=== PATIENT | male | born 1955 | race Two or more races ===

== ENCOUNTER 2016-10-14 11:25 | Inpatient (IN) | payer OTHER ==
[2016-10-14 12:53] VITALS: BMI 26.6
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
[2016-10-14] MEDS ORDERED: MAGNESIUM CITRATE 300 ML BOTTLE PO PRN (15:01)
[2016-10-14] MEDS ORDERED: LOPERAMIDE HCL 2 MG CAPSULE PO PRN (15:01)
[2016-10-14] MEDS ORDERED: MAGNESIUM HYDROX 2400MG/30ML ORAL SUSPENSION 30 ML CUP PO PRN (15:01)
[2016-10-14] MEDS ORDERED: MENTHOL/PHENOL 1 EACH UD MM PRN (15:01)
[2016-10-14] MEDS ORDERED: ACETAMINOPHEN 325 MG TABLET (FP) PO PRN (15:01)
[2016-10-14] MEDS ORDERED: MAG HYDROX/AL HYDROX/SIMETH 30 ML UNIT-DOSE CUP PO PRN (15:01)
[2016-10-14] MEDS ORDERED: IBUPROFEN 400 MG TABLET (FP) PO PRN (15:01)
[2016-10-14] MEDS ORDERED: diphenhydrAMINE HCL 50 MG CAPSULE PO PRN (15:01)
[2016-10-14] MEDS ORDERED: P-EPHED 60MG/TRIPROLIDI 2.5MG TABLET PO PRN (15:01)
[2016-10-14] MEDS ORDERED: guaiFENesin/D-METHORPHAN HB 10 ML UNIT-DOSE CUPS PO PRN (15:01)
[2016-10-14] MEDS: THIAMINE HCL 100 MG TABLET (FP) PO SCH (21:44)
[2016-10-14] MEDS: RILPIVIRINE HCL 25 MG TABLET PO SCH (21:44)
[2016-10-14] MEDS: levETIRAcetam 500 MG TABLET (FP) PO SCH (21:44)
[2016-10-14 23:41] LABS: URINE APPEARANCE CLEAR; URINE BILIRUBIN NEGATIVE (NEGATIVE); URINE BLOOD NEGATIVE (NEGATIVE); URINE COLOR DKYELLOW; URINE GLUCOSE (UA) NEGATIVE (NEGATIVE); URINE KETONE NEGATIVE (NEGATIVE); URINE LEUK ESTERASE NEGATIVE (NEGATIVE); URINE NITRITE NEGATIVE (NEGATIVE); URINE PROTEIN NEGATIVE (NEGATIVE); URINE UROBILINOGEN NEGATIVE E.U./dl (0.2-1.0)
[2016-10-15 09:45] LABS: MCHC 33.1 g/dl (32.0-35.9); MEAN CELL VOLUME 96.9 fl (80-96); MEAN PLT VOLUME 9.3 fl (7.5-11.1); PLATELET COUNT 162 K/MM3 (134-434); WHITE BLOOD COUNT 6.4 K/mm3 (4.0-10.0)
[2016-10-15] MEDS: SULFAMETHOXAZOLE/TRIMETHOPRIM 800MG/160MG D.S. TABLET PO SCH (10:25)
[2016-10-15] MEDS: PRENATAL VITAMINS W/ FOLIC ACID TABLET (FP) PO SCH (10:25)
[2016-10-15] MEDS: levETIRAcetam 500 MG TABLET (FP) PO SCH ×2 (10:25→21:25)
[2016-10-15] MEDS: RILPIVIRINE HCL 25 MG TABLET PO SCH ×2 (10:26→21:23)
[2016-10-15] MEDS: NICOTINE 21 MG/24 HOURS TOPICAL PATCH TD SCH (10:27)
[2016-10-15 10:39] LABS: ALBUMIN 3.5 g/dl (3.4-5.0); ALK PHOS 86 U/L (45-117); ANION GAP 12 (8-16); BILIRUBIN,TOTAL 0.3 mg/dL (0.2-1.0); CALCIUM 8.9 mg/dL (8.5-10.1); CO2 24 mmol/L (21-32); CREATININE 1.2 mg/dL (0.7-1.3); GLUCOSE,RANDOM 131 mg/dL (74-106); SGOT/AST 31 U/L (15-37); SGPT/ALT 46 U/L (12-78); TOT PROT 7.5 g/dl (6.4-8.2)
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
[2016-10-15] MEDS: THIAMINE HCL 100 MG TABLET (FP) PO SCH (21:25)
--- NOTE | 2016-10-15 22:30 | PN ---
ALEX Progress Note Note: received nurse informed patient reports taking antivirus medication once a day at home x "years" home medications reviewed that genvoya +endurant po once daily
--- NOTE | 2016-10-15 23:38 | EKG ---
Test Reason : Blood Pressure : / mmHG Vent. Rate : 067 BPM Atrial Rate : 067 BPM P-R Int : 190 ms QRS Dur : 086 ms QT Int : 378 ms P-R-T Axes : 049 005 027 degrees QTc Int : 399 ms NORMAL SINUS RHYTHM NORMAL ECG NO PREVIOUS ECGS AVAILABLE Confirmed by MALATHI MARTINEZ MD ([id number]) on 10/15/2016 11:38:10 PM Referred By: Confirmed By:MALATHI MARTINEZ MD
[2016-10-16] MEDS: levETIRAcetam 500 MG TABLET (FP) PO SCH ×2 (10:46→21:17)
[2016-10-16] MEDS: NICOTINE 21 MG/24 HOURS TOPICAL PATCH TD SCH (10:46)
[2016-10-16] MEDS: ARIPiprazole 15 MG TABLET PO SCH (10:46)
[2016-10-16] MEDS: SERTRALINE HCL 50 MG TABLET (FP) PO SCH (10:46)
[2016-10-16] MEDS: SULFAMETHOXAZOLE/TRIMETHOPRIM 800MG/160MG D.S. TABLET PO SCH (10:46)
[2016-10-16] MEDS: RILPIVIRINE HCL 25 MG TABLET PO SCH (10:46)
[2016-10-16] MEDS: PRENATAL VITAMINS W/ FOLIC ACID TABLET (FP) PO SCH (10:46)
[2016-10-16] MEDS: THIAMINE HCL 100 MG TABLET (FP) PO SCH (21:17)
[2016-10-17] MEDS: ARIPiprazole 15 MG TABLET PO SCH (10:46)
[2016-10-17] MEDS: RILPIVIRINE HCL 25 MG TABLET PO SCH (10:46)
[2016-10-17] MEDS: levETIRAcetam 500 MG TABLET (FP) PO SCH ×2 (10:46→21:17)
[2016-10-17] MEDS: SULFAMETHOXAZOLE/TRIMETHOPRIM 800MG/160MG D.S. TABLET PO SCH (10:46)
[2016-10-17] MEDS: NICOTINE 21 MG/24 HOURS TOPICAL PATCH TD SCH (10:46)
[2016-10-17] MEDS: PRENATAL VITAMINS W/ FOLIC ACID TABLET (FP) PO SCH (10:46)
[2016-10-17] MEDS: SERTRALINE HCL 50 MG TABLET (FP) PO SCH (10:46)
[2016-10-17] MEDS: THIAMINE HCL 100 MG TABLET (FP) PO SCH (21:17)
[2016-10-18] MEDS: SERTRALINE HCL 50 MG TABLET (FP) PO SCH (10:19)
[2016-10-18] MEDS: SULFAMETHOXAZOLE/TRIMETHOPRIM 800MG/160MG D.S. TABLET PO SCH (10:19)
[2016-10-18] MEDS: levETIRAcetam 500 MG TABLET (FP) PO SCH ×2 (10:19→21:36)
[2016-10-18] MEDS: PRENATAL VITAMINS W/ FOLIC ACID TABLET (FP) PO SCH (10:19)
[2016-10-18] MEDS: ARIPiprazole 15 MG TABLET PO SCH (10:19)
[2016-10-18] MEDS: RILPIVIRINE HCL 25 MG TABLET PO SCH (10:20)
[2016-10-18] MEDS: NICOTINE 21 MG/24 HOURS TOPICAL PATCH TD SCH (10:21)
[2016-10-18] MEDS: THIAMINE HCL 100 MG TABLET (FP) PO SCH (21:36)
[2016-10-19] MEDS: PRENATAL VITAMINS W/ FOLIC ACID TABLET (FP) PO SCH (10:41)
[2016-10-19] MEDS: NICOTINE 21 MG/24 HOURS TOPICAL PATCH TD SCH (10:41)
[2016-10-19] MEDS: SERTRALINE HCL 50 MG TABLET (FP) PO SCH (10:41)
[2016-10-19] MEDS: SULFAMETHOXAZOLE/TRIMETHOPRIM 800MG/160MG D.S. TABLET PO SCH (10:42)
[2016-10-19] MEDS: ARIPiprazole 15 MG TABLET PO SCH (10:42)
[2016-10-19] MEDS: levETIRAcetam 500 MG TABLET (FP) PO SCH ×2 (10:42→21:33)
[2016-10-19] MEDS: RILPIVIRINE HCL 25 MG TABLET PO SCH (10:42)
[2016-10-19] MEDS: THIAMINE HCL 100 MG TABLET (FP) PO SCH (21:34)
[2016-10-20] MEDS: SULFAMETHOXAZOLE/TRIMETHOPRIM 800MG/160MG D.S. TABLET PO SCH (10:27)
[2016-10-20] MEDS: levETIRAcetam 500 MG TABLET (FP) PO SCH ×2 (10:27→21:33)
[2016-10-20] MEDS: SERTRALINE HCL 50 MG TABLET (FP) PO SCH (10:27)
[2016-10-20] MEDS: PRENATAL VITAMINS W/ FOLIC ACID TABLET (FP) PO SCH (10:27)
[2016-10-20] MEDS: ARIPiprazole 15 MG TABLET PO SCH (10:27)
[2016-10-20] MEDS: RILPIVIRINE HCL 25 MG TABLET PO SCH (10:28)
[2016-10-20] MEDS: NICOTINE 21 MG/24 HOURS TOPICAL PATCH TD SCH (10:28)
[2016-10-20] MEDS: THIAMINE HCL 100 MG TABLET (FP) PO SCH (21:33)
[2016-10-21] MEDS: SERTRALINE HCL 50 MG TABLET (FP) PO SCH (09:52)
[2016-10-21] MEDS: PRENATAL VITAMINS W/ FOLIC ACID TABLET (FP) PO SCH (09:52)
[2016-10-21] MEDS: SULFAMETHOXAZOLE/TRIMETHOPRIM 800MG/160MG D.S. TABLET PO SCH (09:52)
[2016-10-21] MEDS: ARIPiprazole 15 MG TABLET PO SCH (09:58)
[2016-10-21] MEDS: levETIRAcetam 500 MG TABLET (FP) PO SCH ×2 (09:58→21:28)
[2016-10-21] MEDS: NICOTINE 21 MG/24 HOURS TOPICAL PATCH TD SCH (10:02)
[2016-10-21] MEDS: RILPIVIRINE HCL 25 MG TABLET PO SCH (10:02)
[2016-10-21] MEDS: THIAMINE HCL 100 MG TABLET (FP) PO SCH (21:28)
[2016-10-22] MEDS: ARIPiprazole 15 MG TABLET PO SCH (10:37)
[2016-10-22] MEDS: SULFAMETHOXAZOLE/TRIMETHOPRIM 800MG/160MG D.S. TABLET PO SCH (10:37)
[2016-10-22] MEDS: SERTRALINE HCL 50 MG TABLET (FP) PO SCH (10:37)
[2016-10-22] MEDS: levETIRAcetam 500 MG TABLET (FP) PO SCH ×2 (10:37→21:35)
[2016-10-22] MEDS: NICOTINE 21 MG/24 HOURS TOPICAL PATCH TD SCH (10:38)
[2016-10-22] MEDS: RILPIVIRINE HCL 25 MG TABLET PO SCH (10:38)
[2016-10-22] MEDS: PRENATAL VITAMINS W/ FOLIC ACID TABLET (FP) PO SCH (10:39)
[2016-10-22] MEDS: THIAMINE HCL 100 MG TABLET (FP) PO SCH (21:35)
[2016-10-23] MEDS: PRENATAL VITAMINS W/ FOLIC ACID TABLET (FP) PO SCH (09:47)
[2016-10-23] MEDS: ARIPiprazole 15 MG TABLET PO SCH (09:47)
[2016-10-23] MEDS: levETIRAcetam 500 MG TABLET (FP) PO SCH ×2 (09:47→21:16)
[2016-10-23] MEDS: SULFAMETHOXAZOLE/TRIMETHOPRIM 800MG/160MG D.S. TABLET PO SCH (09:47)
[2016-10-23] MEDS: SERTRALINE HCL 50 MG TABLET (FP) PO SCH (09:47)
[2016-10-23] MEDS: NICOTINE 21 MG/24 HOURS TOPICAL PATCH TD SCH (09:48)
[2016-10-23] MEDS: RILPIVIRINE HCL 25 MG TABLET PO SCH ×2 (10:40→21:16)
[2016-10-23] MEDS: THIAMINE HCL 100 MG TABLET (FP) PO SCH (21:16)
[2016-10-24] MEDS: RILPIVIRINE HCL 25 MG TABLET PO SCH ×2 (09:54→21:53)
[2016-10-24] MEDS: ARIPiprazole 15 MG TABLET PO SCH (09:54)
[2016-10-24] MEDS: PRENATAL VITAMINS W/ FOLIC ACID TABLET (FP) PO SCH (09:54)
[2016-10-24] MEDS: levETIRAcetam 500 MG TABLET (FP) PO SCH ×2 (09:54→21:53)
[2016-10-24] MEDS: SERTRALINE HCL 50 MG TABLET (FP) PO SCH (09:54)
[2016-10-24] MEDS: SULFAMETHOXAZOLE/TRIMETHOPRIM 800MG/160MG D.S. TABLET PO SCH (09:54)
[2016-10-24] MEDS: NICOTINE 21 MG/24 HOURS TOPICAL PATCH TD SCH (09:56)
[2016-10-24] MEDS: THIAMINE HCL 100 MG TABLET (FP) PO SCH (21:53)
[2016-10-25] MEDS: SULFAMETHOXAZOLE/TRIMETHOPRIM 800MG/160MG D.S. TABLET PO SCH (09:38)
[2016-10-25] MEDS: PRENATAL VITAMINS W/ FOLIC ACID TABLET (FP) PO SCH (09:38)
[2016-10-25] MEDS: levETIRAcetam 500 MG TABLET (FP) PO SCH ×2 (09:38→21:18)
[2016-10-25] MEDS: NICOTINE 21 MG/24 HOURS TOPICAL PATCH TD SCH (09:38)
[2016-10-25] MEDS: SERTRALINE HCL 50 MG TABLET (FP) PO SCH (09:38)
[2016-10-25] MEDS: RILPIVIRINE HCL 25 MG TABLET PO SCH ×2 (09:38→21:18)
[2016-10-25] MEDS: ARIPiprazole 15 MG TABLET PO SCH (09:38)
[2016-10-25] MEDS: THIAMINE HCL 100 MG TABLET (FP) PO SCH (21:18)
[2016-10-26] MEDS: PRENATAL VITAMINS W/ FOLIC ACID TABLET (FP) PO SCH (10:35)
[2016-10-26] MEDS: ARIPiprazole 15 MG TABLET PO SCH (10:35)
[2016-10-26] MEDS: SULFAMETHOXAZOLE/TRIMETHOPRIM 800MG/160MG D.S. TABLET PO SCH (10:35)
[2016-10-26] MEDS: levETIRAcetam 500 MG TABLET (FP) PO SCH ×2 (10:35→21:10)
[2016-10-26] MEDS: SERTRALINE HCL 50 MG TABLET (FP) PO SCH (10:35)
[2016-10-26] MEDS: RILPIVIRINE HCL 25 MG TABLET PO SCH ×2 (10:35→21:10)
[2016-10-26] MEDS: NICOTINE 21 MG/24 HOURS TOPICAL PATCH TD SCH (10:36)
[2016-10-26] MEDS: THIAMINE HCL 100 MG TABLET (FP) PO SCH (21:10)
[2016-10-27] MEDS: ARIPiprazole 15 MG TABLET PO SCH (10:43)
[2016-10-27] MEDS: SULFAMETHOXAZOLE/TRIMETHOPRIM 800MG/160MG D.S. TABLET PO SCH (10:43)
[2016-10-27] MEDS: RILPIVIRINE HCL 25 MG TABLET PO SCH ×2 (10:43→21:16)
[2016-10-27] MEDS: NICOTINE 21 MG/24 HOURS TOPICAL PATCH TD SCH (10:44)
[2016-10-27] MEDS: levETIRAcetam 500 MG TABLET (FP) PO SCH ×2 (10:44→21:16)
[2016-10-27] MEDS: PRENATAL VITAMINS W/ FOLIC ACID TABLET (FP) PO SCH (10:44)
[2016-10-27] MEDS: SERTRALINE HCL 50 MG TABLET (FP) PO SCH (10:44)
[2016-10-27] MEDS: THIAMINE HCL 100 MG TABLET (FP) PO SCH (21:16)
[2016-10-28 07:07] VITALS: BP 120/69; PULSE 63; TEMP 97.9
[2016-10-28] MEDS: SERTRALINE HCL 50 MG TABLET (FP) PO SCH (10:14)
[2016-10-28] MEDS: PRENATAL VITAMINS W/ FOLIC ACID TABLET (FP) PO SCH (10:14)
[2016-10-28] MEDS: ARIPiprazole 15 MG TABLET PO SCH (10:14)
[2016-10-28] MEDS: SULFAMETHOXAZOLE/TRIMETHOPRIM 800MG/160MG D.S. TABLET PO SCH (10:14)
[2016-10-28] MEDS: NICOTINE 21 MG/24 HOURS TOPICAL PATCH TD SCH (10:15)
[2016-10-28] MEDS: RILPIVIRINE HCL 25 MG TABLET PO SCH (10:15)
[2016-10-28] MEDS: levETIRAcetam 500 MG TABLET (FP) PO SCH (10:16)
--- NOTE | 2016-10-28 12:02 | PN ---
Psychiatric Progress Note Vital Signs: Vital Signs Period Temp Pulse Resp BP Sys/Ruiz Pulse Ox Last 24 Hr 97.9 F 63 18-18 120/69 Date of Session: 10/28/16 Chief Complaint:: discharge visit HPI: Patient has addressed cocaine , nicotine dependence comorbid PTSD and Schizoaffective disorder. ROS: HIV+ since 1985, Hep C, and Seizure medically managed. Current Side Effect: No Lab tests ordered: No Lab tests reviewed: Yes Provider note:: Patient has completed today his treatemt and met his goals, will continue to address his issues at the [facility], he gained insights into his addiction and motivated to continue maintain abstinence, patient verbalized his understanding of importance of changing behavior for the utilization of supports to perevent relapses. Patient reports that Abilify and Zoloft have been effective in mood stabilization and anxiety reduction, scripts provided, patient is stable for discharge today. Total face to face time:: 25 Mental Status Exam - Mental Status Exam Alert and Oriented to: Time, Place, Person Cognitive Function: Good Patient Appearance: Well Groomed Mood: Hopeful Affect: Appropriate, Mood Congruent Patient Behavior: Appropriate, Cooperative Speech Pattern: Clear, Appropriate Voice Loudness: Normal Thought Process: Intact, Goal Oriented Thought Disorder: Not Present Hallucinations: Denies Suicidal Ideation: Denies Homicidal Ideation: Denies Insight/Judgement: Fair Sleep: Fair Muscle strength/Tone: Normal Gait/Station: Normal Psychiatric Treatment Plan - Problem List (3) Hepatitis C Qualifiers: Viral hepatitis chronicity: chronic Hepatic coma status: without hepatic coma Qualified Code(s): B18.2 - Chronic viral hepatitis C (4) Nicotine dependence Qualifiers: Nicotine product type: cigarettes Substance use status: uncomplicated Qualified Code(s): F17.210 - Nicotine dependence, cigarettes, uncomplicated (5) Schizoaffective disorder Qualifiers: Schizoaffective disorder type: depressive Qualified Code(s): F25.1 - Schizoaffective disorder, depressive type
== END 2016-10-28 10:35 | disposition home or self-care (01) | DRG 772 ==
LOC: YASAS 11:25 → Y5N 15:14
PROVIDERS: ADMIT Psychiatry & Neurology Psychiatry; ATTEND Psychiatry & Neurology Psychiatry
PROC: HZ42ZZZ Group Counseling for Substance Abuse Treatment, Cognitive-Behavioral (ICD-10-PCS; principal; 2016-10-14)
DX: F14.20 Cocaine dependence, uncomplicated (principal); F17.210 Nicotine dependence, cigarettes, uncomplicated; F43.10 Post-traumatic stress disorder, unspecified; F25.9 Schizoaffective disorder, unspecified; G40.909 Epilepsy, unspecified, not intractable, without status epilepticus; Z21 Asymptomatic human immunodeficiency virus [HIV] infection status; B18.2 Chronic viral hepatitis C
CPT/HCPCS: 36415; 80053; 81003; 85027; 86593; 93005; 93010

== ENCOUNTER 2017-11-20 12:21 | Inpatient (IN) | payer OTHER ==
[2017-11-20 13:43] VITALS: BMI 24.1
--- NOTE | 2017-11-20 17:47 | HP ---
Admission [facility] Chief Complaint: I am here for rehab for crack / cocaine Allergies/Adverse Reactions: Allergies Allergy/AdvReac Type Severity Reaction Status Date / Time No Known Allergies Allergy Verified 10/14/16 14:35 History of Present Illness: 62 yo with hx of crack / caocine and nicotine dependence is here toa for rehab. PMHX: seizure, last seizure three months ago, HIV + (CD4 under 200), depression, anxiety. Denies suicidal / homicidal ideation. Denies hx of suicide attempts. Last drug treatment at [facility] October 2016. Reports no significant period of sobriety. Exam Limitations: No Limitations - Ebola screening Have you traveled outside of the country in the last 21 days: No Have you had contact with anyone from an Ebola affected area: No Have you been sick,other than usual withdrawal symptoms: No Do you have a fever: No - Review of Systems Constitutional: Loss of Appetite, Changes in sleep, Unintentional Wgt. Loss (15 lbs in the pat 2 months) EENT: reports: Blurred Vision (useas glasses) Respiratory: reports: No Symptoms reported Cardiac: reports: No Symptoms Reported GI: reports: Poor Appetite, Poor Fluid Intake : reports: No Symptoms Reported Musculoskeletal: reports: No Symptoms Reported Integumentary: reports: Pruritus Endocrine: reports: No Symptoms Reported Hematology: reports: Anemia Psychiatric: reports: Orientated x3, Depressed Other Systems: Reviewed and Negative Patient History - Patient Medical History Hx Anemia: Yes Hx Asthma: No Hx Chronic Obstructive Pulmonary Disease (COPD): No Hx Cancer: No Hx Cardiac Disorders: No Hx Congestive Heart Failure: No Hx Hypertension: No Hx Hypercholesterolemia: No Hx Pacemaker: No HX Cerebrovascular Accident: No Hx Seizures: Yes (last seizure three months ago) Hx Dementia: No Hx Diabetes: No Hx Gastrointestinal Disorders: No Hx Liver Disease: Yes (Hep C no treatment ) Hx Genitourinary Disorders: No Hx Sexually Transmitted Disorders: Yes Hx Renal Disease (ESRD): No Hx Thyroid Disease: No Hx Human Immunodeficiency Virus (HIV): Yes (SINCE 1985) Hx Hepatitis C: Yes (no treatment ) Hx Depression: Yes Hx Suicide Attempt: No Hx Bipolar Disorder: No Hx Schizophrenia: Yes (dx 1985) - Patient Surgical History Past Surgical History: No Hx Neurologic Surgery: No Hx Cataract Extraction: No Hx Cardiac Surgery: No Hx Lung Surgery: No Hx Breast Surgery: No Hx Breast Biopsy: No Hx Abdominal Surgery: No Hx Appendectomy: No Hx Cholecystectomy: No Hx Genitourinary Surgery: No Hx Section: No Hx Orthopedic Surgery: No - PPD History Previous Implant?: Yes Documented Results: Negative w/proof Date: 01/12/16 PPD to be Administered?: Yes - Smoking Cessation Smoking history: Current every day smoker Have you smoked in the past 12 months: Yes Aproximately how many cigarettes per day: 20 Cigars Per Day: 0 Hx Chewing Tobacco Use: No Initiated information on smoking cessation: Yes 'Breaking Loose' booklet given: 11/20/17 - Substance & Tx. History Hx Alcohol Use: No Hx Substance Use: Yes Substance Use Type: Cocaine Hx Substance Use Treatment: Yes ([facility] October 2016) - Substances Abused Crack Route: Smoking Frequency: Daily Amount used: $30 - $40 Age of first use: 26 Date of Last Use: 11/18/17 Family Disease History - Family Disease History Family Disease History: Heart Disease: Mother (alive ), [place]: Father (, throat cancer ), Other: Father Admission Physical Exam [facility] - Vital Signs Vital Signs: Vital Signs - 24 hr 11/20/17 13:40 Temperature 97.8 F Pulse Rate 69 Respiratory 18 Rate Blood Pressure 110/64 - Physical General Appearance: Yes: Disheveled, Thin, Anxious HEENTM: Yes: EOMI, Hearing grossly Normal, Normal ENT Inspection, Normocephalic , Normal Voice, LENARD, Pharynx Normal, Tm's normal, Other (poor dentition, dry mucous membranes, chelithis) Respiratory: Yes: Chest Non-Tender, Lungs Clear, Normal Breath Sounds, No Respiratory Distress, No Accessory Muscle Use Neck: Yes: No masses,lesions,Nodules, Trachea in good position Breast: Yes: Breast Exam Deferred Cardiology: Yes: Regular Rhythm, Regular Rate Abdominal: Yes: Normal Bowel Sounds, Non Tender, Flat, Soft Genitourinary: Yes: Within Normal Limits Back: Yes: Normal Inspection Musculoskeletal: Yes: full range of Motion, Gait Steady, Pelvis Stable Extremities: Yes: Normal Capillary Refill, Normal Inspection, Normal Range of Motion, Non-Tender Neurological: Yes: steel layer II-XII NML intact, Fully Oriented, Alert, Motor Strength 5/5, Depressed Affect Integumentary: Yes: Normal Color, Dry, Warm Lymphatic: Yes: Within Normal Limits - Diagnostic (1) Psychiatric disorder Current Visit: Yes Status: Suspected (2) Weight loss Current Visit: Yes Status: Acute (3) Cocaine dependence, uncomplicated Current Visit: Yes Status: Chronic (4) HIV (human immunodeficiency virus infection) Current Visit: Yes Status: Chronic (5) Hepatitis C Current Visit: Yes Status: Chronic Qualifiers: Viral hepatitis chronicity: chronic Hepatic coma status: without hepatic coma Qualified Code(s): B18.2 - Chronic viral hepatitis C (6) Nicotine dependence Current Visit: Yes Status: Chronic Qualifiers: Nicotine product type: cigarettes Substance use status: uncomplicated Qualified Code(s): F17.210 - Nicotine dependence, cigarettes, uncomplicated [facility] Breath Alcohol Content Breath Alcohol Content: 0 Urine Drug Screen - Results Drug Screen Negative: No Urine Drug Screen Results: TRE-Cocaine Inpatient Rehab Admission - Initial Determination Are CD services needed?: Yes Free of communicable disease: Yes Not in need of hospitalization: Yes - Rehab Admission Criteria Previous failed treatment: Yes Poor recovery environment: Yes Comorbidities: Yes Lacks judgement: Yes Patient is meeting Inpatient Rehab admission criteria:: Yes
[2017-11-20] MEDS ORDERED: NICOTINE POLACRILEX 2 MG GUM BUC PRN (17:50)
[2017-11-20] MEDS ORDERED: guaiFENesin/D-METHORPHAN HB 10 ML UNIT-DOSE CUPS PO PRN (17:50)
[2017-11-20] MEDS ORDERED: LOPERAMIDE HCL 2 MG CAPSULE PO PRN (17:50)
[2017-11-20] MEDS ORDERED: P-EPHED 60MG/TRIPROLIDI 2.5MG TABLET PO PRN (17:50)
[2017-11-20] MEDS ORDERED: MENTHOL/PHENOL 1 EACH UD MM PRN (17:50)
[2017-11-20] MEDS ORDERED: hydrOXYzine PAMOATE 50 MG CAPSULE (FP) PO PRN (17:50)
[2017-11-20] MEDS ORDERED: MAGNESIUM CITRATE 300 ML BOTTLE PO PRN (17:50)
[2017-11-20] MEDS ORDERED: IBUPROFEN 400 MG TABLET (FP) PO PRN (17:50)
[2017-11-20] MEDS ORDERED: MAGNESIUM HYDROX 2400MG/30ML ORAL SUSPENSION 30 ML CUP PO PRN (17:50)
[2017-11-20] MEDS ORDERED: ACETAMINOPHEN 325 MG TABLET (FP) PO PRN (17:50)
[2017-11-20] MEDS ORDERED: MAG HYDROX/AL HYDROX/SIMETH 30 ML UNIT-DOSE CUP PO PRN (17:50)
[2017-11-20] MEDS: levETIRAcetam 500 MG TABLET (FP) PO SCH (21:50)
[2017-11-20] MEDS: THIAMINE HCL 100 MG TABLET (FP) PO SCH (21:50)
[2017-11-20] MEDS ORDERED: TUBERCULIN PPD 5 TU/0.1ML VIAL ID ONE (22:00)
[2017-11-20] MEDS ORDERED: MELATONIN 5 MG TABLETS PO PRN (22:00)
[2017-11-20 23:18] LABS: URINE APPEARANCE CLOUDY; URINE BILIRUBIN NEGATIVE (<2.0 mg/dL); URINE BLOOD NEGATIVE (NEGATIVE); URINE COLOR AMBER; URINE GLUCOSE (UA) NEGATIVE (NEGATIVE); URINE KETONE NEGATIVE (NEGATIVE); URINE LEUK ESTERASE NEGATIVE (NEGATIVE); URINE NITRITE NEGATIVE (NEGATIVE); URINE UROBILINOGEN 4.0 E.U/dl mg/dL (0.2-1.0)
[2017-11-20 23:23] LABS: URINE PROTEIN 1+ (NEGATIVE)
[2017-11-20 23:35] LABS: EPI CELLS RARE /HPF (FEW); URINE BACTERIA RARE /hpf (NONE SEEN); URINE MUCUS FEW
[2017-11-21] MEDS: SULFAMETHOXAZOLE/TRIMETHOPRIM 800MG/160MG D.S. TABLET PO SCH (10:34)
[2017-11-21] MEDS: PRENATAL VITAMINS W/ FOLIC ACID TABLET (FP) PO SCH (10:34)
[2017-11-21] MEDS: levETIRAcetam 500 MG TABLET (FP) PO SCH ×2 (10:34→21:58)
[2017-11-21] MEDS: NICOTINE 21 MG/24 HOURS TOPICAL PATCH TD SCH (10:34)
[2017-11-21] MEDS ORDERED: PNEUMOC 13-VAL CONJ-DIP CRM/PF 0.5 ML DISP.SYRIN IM ONE (12:00)
[2017-11-21] MEDS ORDERED: FLU VACCINE QUAD 60 MCG/0.5 ML (MDV 17-18) IM ONE (12:00)
[2017-11-21] MEDS ORDERED: PNEUMOCOCCAL 23 VACCINE 0.5 ML VIAL IM ONE (12:00)
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
[2017-11-21] MEDS: SERTRALINE HCL 50 MG TABLET (FP) PO SCH (15:31)
[2017-11-21] MEDS: ARIPiprazole 15 MG TABLET PO SCH (16:37)
[2017-11-21] MEDS: THIAMINE HCL 100 MG TABLET (FP) PO SCH (21:58)
--- NOTE | 2017-11-22 08:24 | EKG ---
Test Reason : Blood Pressure : / mmHG Vent. Rate : 067 BPM Atrial Rate : 067 BPM P-R Int : 174 ms QRS Dur : 098 ms QT Int : 392 ms P-R-T Axes : 043 -03 024 degrees QTc Int : 414 ms NORMAL SINUS RHYTHM INCOMPLETE RIGHT BUNDLE BRANCH BLOCK BORDERLINE ECG WHEN COMPARED WITH ECG OF 14-OCT-2016 22:51, INCOMPLETE RIGHT BUNDLE BRANCH BLOCK IS NOW PRESENT T WAVE AMPLITUDE HAS DECREASED IN LATERAL LEADS Confirmed by SAILAJA SOUZA, CESAR ([id number]) on 11/22/2017 8:23:37 AM Referred By: Confirmed By:CESAR MENARD MD
[2017-11-22] MEDS: ARIPiprazole 15 MG TABLET PO SCH (10:26)
[2017-11-22] MEDS: NICOTINE 21 MG/24 HOURS TOPICAL PATCH TD SCH (10:26)
[2017-11-22] MEDS: PRENATAL VITAMINS W/ FOLIC ACID TABLET (FP) PO SCH (10:26)
[2017-11-22] MEDS: SERTRALINE HCL 50 MG TABLET (FP) PO SCH (10:26)
[2017-11-22] MEDS: levETIRAcetam 500 MG TABLET (FP) PO SCH ×2 (10:26→21:37)
[2017-11-22] MEDS: SULFAMETHOXAZOLE/TRIMETHOPRIM 800MG/160MG D.S. TABLET PO SCH (10:26)
[2017-11-22] MEDS: THIAMINE HCL 100 MG TABLET (FP) PO SCH (21:37)
[2017-11-23 10:12] LABS: HEMATOCRIT 39.8 % (35.4-49); HEMOGLOBIN 13.5 GM/dL (11.7-16.9); MCH 30.9 pg (25.7-33.7); MEAN PLT VOLUME 9.3 fl (7.5-11.1); PLATELET COUNT 141 K/MM3 (134-434); RBC 4.37 M/mm3 (4.00-5.60); RDW 14.1 % (11.9-15.9); WHITE BLOOD COUNT 4.4 K/mm3 (4.0-10.0)
[2017-11-23] MEDS: NICOTINE 21 MG/24 HOURS TOPICAL PATCH TD SCH (10:14)
[2017-11-23] MEDS: SERTRALINE HCL 50 MG TABLET (FP) PO SCH (10:14)
[2017-11-23] MEDS: levETIRAcetam 500 MG TABLET (FP) PO SCH ×2 (10:14→21:49)
[2017-11-23] MEDS: SULFAMETHOXAZOLE/TRIMETHOPRIM 800MG/160MG D.S. TABLET PO SCH (10:14)
[2017-11-23] MEDS: PRENATAL VITAMINS W/ FOLIC ACID TABLET (FP) PO SCH (10:14)
[2017-11-23] MEDS: ARIPiprazole 15 MG TABLET PO SCH (10:14)
[2017-11-23 10:26] LABS: CHLORIDE 103 mmol/L (98-107); POTASSIUM 4.1 mmol/L (3.5-5.1); SODIUM 137 mmol/L (136-145)
[2017-11-23 10:40] LABS: ALBUMIN 3.2 g/dl (3.4-5.0); ALK PHOS 77 U/L (45-117); ANION GAP 6 (8-16); BILIRUBIN,TOTAL 0.4 mg/dL (0.2-1.0); BLOOD UREA NITROGEN 10 mg/dL (7-18); CALCIUM 8.2 mg/dL (8.5-10.1); CO2 28 mmol/L (21-32); CREATININE 1.1 mg/dL (0.7-1.3); GLUCOSE,RANDOM 160 mg/dL (74-106); SGOT/AST 57 U/L (15-37); SGPT/ALT 45 U/L (12-78); TOT PROT 7.1 g/dl (6.4-8.2)
[2017-11-23] MEDS: THIAMINE HCL 100 MG TABLET (FP) PO SCH (21:49)
[2017-11-24] MEDS: ARIPiprazole 15 MG TABLET PO SCH (10:41)
[2017-11-24] MEDS: PRENATAL VITAMINS W/ FOLIC ACID TABLET (FP) PO SCH (10:41)
[2017-11-24] MEDS: SULFAMETHOXAZOLE/TRIMETHOPRIM 800MG/160MG D.S. TABLET PO SCH (10:41)
[2017-11-24] MEDS: SERTRALINE HCL 50 MG TABLET (FP) PO SCH (10:41)
[2017-11-24] MEDS: levETIRAcetam 500 MG TABLET (FP) PO SCH ×2 (10:41→21:33)
[2017-11-24] MEDS: NICOTINE 21 MG/24 HOURS TOPICAL PATCH TD SCH (10:42)
[2017-11-24] MEDS: THIAMINE HCL 100 MG TABLET (FP) PO SCH (21:33)
[2017-11-25] MEDS: PRENATAL VITAMINS W/ FOLIC ACID TABLET (FP) PO SCH (09:40)
[2017-11-25] MEDS: SERTRALINE HCL 50 MG TABLET (FP) PO SCH (09:40)
[2017-11-25] MEDS: levETIRAcetam 500 MG TABLET (FP) PO SCH ×2 (09:40→21:41)
[2017-11-25] MEDS: SULFAMETHOXAZOLE/TRIMETHOPRIM 800MG/160MG D.S. TABLET PO SCH (09:40)
[2017-11-25] MEDS: ARIPiprazole 15 MG TABLET PO SCH (09:41)
[2017-11-25] MEDS: NICOTINE 21 MG/24 HOURS TOPICAL PATCH TD SCH (09:41)
[2017-11-25] MEDS: THIAMINE HCL 100 MG TABLET (FP) PO SCH (21:41)
[2017-11-26] MEDS: ARIPiprazole 15 MG TABLET PO SCH (10:26)
[2017-11-26] MEDS: SULFAMETHOXAZOLE/TRIMETHOPRIM 800MG/160MG D.S. TABLET PO SCH (10:26)
[2017-11-26] MEDS: PRENATAL VITAMINS W/ FOLIC ACID TABLET (FP) PO SCH (10:26)
[2017-11-26] MEDS: levETIRAcetam 500 MG TABLET (FP) PO SCH ×2 (10:26→21:38)
[2017-11-26] MEDS: SERTRALINE HCL 50 MG TABLET (FP) PO SCH (10:26)
[2017-11-26] MEDS: NICOTINE 21 MG/24 HOURS TOPICAL PATCH TD SCH (10:27)
[2017-11-26] MEDS: THIAMINE HCL 100 MG TABLET (FP) PO SCH (21:38)
[2017-11-27] MEDS: SERTRALINE HCL 50 MG TABLET (FP) PO SCH (10:41)
[2017-11-27] MEDS: PRENATAL VITAMINS W/ FOLIC ACID TABLET (FP) PO SCH (10:42)
[2017-11-27] MEDS: SULFAMETHOXAZOLE/TRIMETHOPRIM 800MG/160MG D.S. TABLET PO SCH (10:42)
[2017-11-27] MEDS: levETIRAcetam 500 MG TABLET (FP) PO SCH ×2 (10:42→21:42)
[2017-11-27] MEDS: ARIPiprazole 15 MG TABLET PO SCH (10:43)
[2017-11-27] MEDS: NICOTINE 21 MG/24 HOURS TOPICAL PATCH TD SCH (10:43)
[2017-11-27] MEDS: THIAMINE HCL 100 MG TABLET (FP) PO SCH (21:42)
[2017-11-28] MEDS: NICOTINE 21 MG/24 HOURS TOPICAL PATCH TD SCH (09:59)
[2017-11-28] MEDS: SERTRALINE HCL 50 MG TABLET (FP) PO SCH (09:59)
[2017-11-28] MEDS: PRENATAL VITAMINS W/ FOLIC ACID TABLET (FP) PO SCH (09:59)
[2017-11-28] MEDS: levETIRAcetam 500 MG TABLET (FP) PO SCH ×2 (09:59→21:33)
[2017-11-28] MEDS: ARIPiprazole 15 MG TABLET PO SCH (09:59)
[2017-11-28] MEDS: SULFAMETHOXAZOLE/TRIMETHOPRIM 800MG/160MG D.S. TABLET PO SCH (09:59)
[2017-11-28] MEDS: THIAMINE HCL 100 MG TABLET (FP) PO SCH (21:33)
[2017-11-29] MEDS: PRENATAL VITAMINS W/ FOLIC ACID TABLET (FP) PO SCH (10:10)
[2017-11-29] MEDS: ARIPiprazole 15 MG TABLET PO SCH (10:10)
[2017-11-29] MEDS: SULFAMETHOXAZOLE/TRIMETHOPRIM 800MG/160MG D.S. TABLET PO SCH (10:10)
[2017-11-29] MEDS: SERTRALINE HCL 50 MG TABLET (FP) PO SCH (10:10)
[2017-11-29] MEDS: NICOTINE 21 MG/24 HOURS TOPICAL PATCH TD SCH (10:10)
[2017-11-29] MEDS: levETIRAcetam 500 MG TABLET (FP) PO SCH ×2 (10:10→21:58)
[2017-11-29] MEDS: THIAMINE HCL 100 MG TABLET (FP) PO SCH (21:58)
[2017-11-30] MEDS: SERTRALINE HCL 50 MG TABLET (FP) PO SCH (10:11)
[2017-11-30] MEDS: levETIRAcetam 500 MG TABLET (FP) PO SCH ×2 (10:11→21:42)
[2017-11-30] MEDS: SULFAMETHOXAZOLE/TRIMETHOPRIM 800MG/160MG D.S. TABLET PO SCH (10:11)
[2017-11-30] MEDS: PRENATAL VITAMINS W/ FOLIC ACID TABLET (FP) PO SCH (10:11)
[2017-11-30] MEDS: ARIPiprazole 15 MG TABLET PO SCH (10:11)
[2017-11-30] MEDS: NICOTINE 21 MG/24 HOURS TOPICAL PATCH TD SCH (10:12)
[2017-11-30] MEDS: THIAMINE HCL 100 MG TABLET (FP) PO SCH (21:42)
[2017-12-01] MEDS: PRENATAL VITAMINS W/ FOLIC ACID TABLET (FP) PO SCH (10:34)
[2017-12-01] MEDS: levETIRAcetam 500 MG TABLET (FP) PO SCH ×2 (10:34→21:39)
[2017-12-01] MEDS: SERTRALINE HCL 50 MG TABLET (FP) PO SCH (10:34)
[2017-12-01] MEDS: NICOTINE 21 MG/24 HOURS TOPICAL PATCH TD SCH (10:34)
[2017-12-01] MEDS: SULFAMETHOXAZOLE/TRIMETHOPRIM 800MG/160MG D.S. TABLET PO SCH (10:34)
[2017-12-01] MEDS: ARIPiprazole 15 MG TABLET PO SCH (10:34)
[2017-12-01] MEDS: THIAMINE HCL 100 MG TABLET (FP) PO SCH (21:39)
[2017-12-02] MEDS: levETIRAcetam 500 MG TABLET (FP) PO SCH ×2 (10:34→21:47)
[2017-12-02] MEDS: ARIPiprazole 15 MG TABLET PO SCH (10:34)
[2017-12-02] MEDS: SERTRALINE HCL 50 MG TABLET (FP) PO SCH (10:34)
[2017-12-02] MEDS: PRENATAL VITAMINS W/ FOLIC ACID TABLET (FP) PO SCH (10:34)
[2017-12-02] MEDS: NICOTINE 21 MG/24 HOURS TOPICAL PATCH TD SCH (10:34)
[2017-12-02] MEDS: SULFAMETHOXAZOLE/TRIMETHOPRIM 800MG/160MG D.S. TABLET PO SCH (10:34)
[2017-12-02] MEDS: THIAMINE HCL 100 MG TABLET (FP) PO SCH (21:47)
[2017-12-03] MEDS: SERTRALINE HCL 50 MG TABLET (FP) PO SCH (10:40)
[2017-12-03] MEDS: PRENATAL VITAMINS W/ FOLIC ACID TABLET (FP) PO SCH (10:40)
[2017-12-03] MEDS: NICOTINE 21 MG/24 HOURS TOPICAL PATCH TD SCH (10:40)
[2017-12-03] MEDS: SULFAMETHOXAZOLE/TRIMETHOPRIM 800MG/160MG D.S. TABLET PO SCH (10:40)
[2017-12-03] MEDS: ARIPiprazole 15 MG TABLET PO SCH (10:40)
[2017-12-03] MEDS: levETIRAcetam 500 MG TABLET (FP) PO SCH ×2 (10:40→21:38)
[2017-12-03] MEDS: THIAMINE HCL 100 MG TABLET (FP) PO SCH (21:38)
[2017-12-04 07:25] VITALS: BP 89/68; PULSE 62; TEMP 98.4
[2017-12-04] MEDS: SERTRALINE HCL 50 MG TABLET (FP) PO SCH (09:45)
[2017-12-04] MEDS: ARIPiprazole 15 MG TABLET PO SCH (09:45)
[2017-12-04] MEDS: PRENATAL VITAMINS W/ FOLIC ACID TABLET (FP) PO SCH (09:45)
[2017-12-04] MEDS: levETIRAcetam 500 MG TABLET (FP) PO SCH (09:45)
[2017-12-04] MEDS: SULFAMETHOXAZOLE/TRIMETHOPRIM 800MG/160MG D.S. TABLET PO SCH (09:45)
[2017-12-04] MEDS: NICOTINE 21 MG/24 HOURS TOPICAL PATCH TD SCH (09:46)
--- NOTE | 2017-12-04 10:03 | PN ---
Psychiatric Progress Note Vital Signs: Vital Signs Period Temp Pulse Resp BP Sys/Ruiz Pulse Ox Last 24 Hr 98.4 F 62 16-18 89/68 Date of Session: 12/04/17 Chief Complaint:: discharge visit HPI: Patient has addressed cocaine, nicotine dependence comorbid Schizoaffective disorder. ROS: Hep C, HIV medically managed. Current Medications: Active Medications Generic Name Dose Route Start Last Admin Trade Name Freq PRN Reason Stop Dose Admin Acetaminophen 650 mg 11/20/17 17:50 Tylenol - PO Q4H PRN FEVER Al Hydroxide/Mg Hydroxide 30 ml 11/20/17 17:50 Mylanta Oral Suspension - PO Q6H PRN DYSPEPSIA Aripiprazole 15 mg 11/21/17 14:30 12/04/17 09:45 Abilify PO 15 mg DAILY CELESTE Administration Eucalyptus/Menthol/Phenol/Sorbitol 1 each 11/20/17 17:50 Cepastat Lozenge - MM Q4H PRN SORE THROAT Guaifenesin 10 ml 11/20/17 17:50 Robitussin Dm - PO Q6H PRN COUGH Hydroxyzine Pamoate 50 mg 11/20/17 17:50 Vistaril - PO Q4H PRN AGITATION Ibuprofen 400 mg 11/20/17 17:50 12/03/17 10:41 Motrin - PO 400 mg Q6H PRN Administration Pain level 4-6 Levetiracetam 500 mg 11/20/17 22:00 12/04/17 09:45 Keppra - PO 500 mg BID CELESTE Administration Loperamide HCl 4 mg 11/20/17 17:50 Imodium - PO Q6H PRN DIARRHEA Magnesium Citrate 300 ml 11/20/17 17:50 Citroma - PO Q48H PRN CONSTIPATION Magnesium Hydroxide 30 ml 11/20/17 17:50 Milk Of Magnesia - PO DAILY PRN CONSTIPATION Melatonin 5 mg 11/20/17 22:00 Melatonin PO HS PRN INSOMNIA Nicotine 21 mg 11/21/17 10:00 12/04/17 09:46 Nicoderm Patch - TD Not Given DAILY CELESTE Nicotine Polacrilex 2 mg 11/20/17 17:50 Nicorette Gum - BUC Q2H PRN NICOTINE REPLACEMENT RX Multivit/Folic Acid/Iron 1 tab 11/21/17 10:00 12/04/17 09:45 Vitamins (Sjr) - PO 1 tab DAILY CELESTE Administration Pseudoephedrine/Triprolidine 1 combo 11/20/17 17:50 Actifed - PO TID PRN NASAL CONGESTION Sertraline HCl 100 mg 11/21/17 14:30 12/04/17 09:45 Zoloft - PO 100 mg DAILY CELESTE Administration Thiamine HCl 100 mg 11/20/17 22:00 12/03/17 21:38 Vitamin B1 - PO 100 mg HS CELESTE Administration Trimethoprim/Sulfamethoxazole 1 each 11/21/17 10:00 12/04/17 09:45 Bactrim Ds - PO 1 each DAILY CELESTE Administration Current Side Effect: No Lab tests ordered: No Lab tests reviewed: Yes Provider note:: Patient has completed today his treatment and met his goals, will continue to address his issues at [facility] outpatient treatment program. Patient gained insights into importance of changing attitudes and utilization of supports available to prevent relapses. Medications Zoloft and Abilify well tolerated, patient reports he feels better and no side-effects , scripts for 30 days provided. Patient is stable for discharge today. Total face to face time:: 15 Mental Status Exam - Mental Status Exam Alert and Oriented to: Time, Place, Person Cognitive Function: Good Patient Appearance: Well Groomed Mood: Hopeful Affect: Appropriate, Mood Congruent Patient Behavior: Appropriate, Cooperative Speech Pattern: Clear, Appropriate Voice Loudness: Normal Thought Process: Intact, Goal Oriented Thought Disorder: Not Present Hallucinations: Denies Suicidal Ideation: Denies Homicidal Ideation: Denies Insight/Judgement: Fair Sleep: Fair Appetite: Good Muscle strength/Tone: Normal Gait/Station: Normal Psychiatric Treatment Plan - Problem List (1) Cocaine dependence, uncomplicated Current Visit: Yes (2) HIV (human immunodeficiency virus infection) Current Visit: Yes (3) Hepatitis C Current Visit: Yes Qualifiers: Viral hepatitis chronicity: chronic Hepatic coma status: without hepatic coma Qualified Code(s): B18.2 - Chronic viral hepatitis C (4) Nicotine dependence Current Visit: Yes Qualifiers: Nicotine product type: cigarettes Substance use status: uncomplicated Qualified Code(s): F17.210 - Nicotine dependence, cigarettes, uncomplicated (5) Schizoaffective disorder Current Visit: Yes Qualifiers: Schizoaffective disorder type: depressive Qualified Code(s): F25.1 - Schizoaffective disorder, depressive type
== END 2017-12-04 10:00 | disposition home or self-care (01) | DRG 772 ==
LOC: YASAS 12:21 → Y5N 18:12
PROVIDERS: ADMIT Psychiatry & Neurology Psychiatry; ATTEND Psychiatry & Neurology Psychiatry
PROC: HZ42ZZZ Group Counseling for Substance Abuse Treatment, Cognitive-Behavioral (ICD-10-PCS; principal; 2017-11-20)
DX: F14.20 Cocaine dependence, uncomplicated (principal); F17.213 Nicotine dependence, cigarettes, with withdrawal; F25.1 Schizoaffective disorder, depressive type; B18.2 Chronic viral hepatitis C; Z21 Asymptomatic human immunodeficiency virus [HIV] infection status; G40.509 Epileptic seizures related to external causes, not intractable, without status epilepticus; D64.9 Anemia, unspecified; R63.4 Abnormal weight loss; Z68.24 Body mass index [BMI] 24.0-24.9, adult
CPT/HCPCS: 36415; 80053; 81003; 81015; 82962; 85027; 86593; 90688; 90732; 93005; 93010; G0008; G0009